=== PATIENT | female | born 1990 | race Caucasian/White ===

== ENCOUNTER 2020-05-14 00:13 | Emergency (ER) | payer OTHER ==
[~2020-05-14] VITALS: Ht 172.7 cm; Wt 90.7 kg
[2020-05-14 00:27] VITALS: BP 141/85
== END 2020-05-14 00:47 ==
LOC: ER 00:14
DX: Z02.89 Encounter for other administrative examinations (principal); F41.9 Anxiety disorder, unspecified; I10 Essential (primary) hypertension; Z90.49 Acquired absence of other specified parts of digestive tract; Z98.890 Other specified postprocedural states; Z60.2 Problems related to living alone

== ENCOUNTER 2023-03-18 12:30 | Emergency (ER) | payer OTHER ==
[~2023-03-18] VITALS: Ht 172.7 cm; Wt 108.9 kg
[2023-03-18] MEDS ORDERED: BENZ-13 PO ×2 (15:15→15:28)
[2023-03-18 16:07] VITALS: BP 112/66; TEMP 99.2; O2SAT 97
== END 2023-03-18 16:09 | disposition home or self-care (01) ==
LOC: ER 12:30
DX: U07.1 COVID-19 (principal); I10 Essential (primary) hypertension; F41.9 Anxiety disorder, unspecified; Z90.49 Acquired absence of other specified parts of digestive tract; Z60.2 Problems related to living alone
CPT/HCPCS: 99284; 71045; 87426; 87804 ×2; C9803